=== PATIENT | male | born 1985 | race Caucasian/White ===

== ENCOUNTER 2023-12-09 07:37 | Emergency (ER) | payer OTHER ==
[~2023-12-09] VITALS: Ht 172.7 cm; Wt 55.0 kg
[2023-12-09] MEDS ORDERED: ANUCORT-HC25 MG PR (08:17)
[2023-12-09] MEDS ORDERED: [UNRECOGNIZED DRUG - OTHER] TOP (08:17)
[2023-12-09] MEDS ORDERED: DIBUCAINE28 GM PR (08:17)
[2023-12-09] MEDS ORDERED: HYDROCODON-ACE1 EA10 PO (08:17)
[2023-12-09] MEDS ORDERED: ONDANSETRON ODT4 MG PO (08:17)
[2023-12-09 08:24] VITALS: BP 144/100
== END 2023-12-09 08:25 | disposition home or self-care (01) ==
LOC: ED 07:37
DX: K64.5 Perianal venous thrombosis (principal)
CPT/HCPCS: 46083; 99282-25